=== PATIENT | female | born 1955 | race Caucasian/White ===

== ENCOUNTER 2019-12-24 06:37 | Day surgery (SDC) | payer BC ==
[2019-12-24] MEDS ORDERED: Lidocaine 1% PF 2 ML SDV INJECT ONE (06:38)
[2019-12-24] MEDS ORDERED: Propofol 200 MG/20 ML SDV IV ONE (06:38)
[2019-12-24] MEDS ORDERED: Sodium Chloride 0.9% 10 ML Syringe FLUSH PRN (06:45)
[2019-12-24] MEDS ORDERED: Lactated Ringers 1,000 ML IV SCH (06:45)
--- NOTE | 2019-12-24 09:06 | PCM.OPNOTE ---
- General Post-Op/Procedure Note Date of Surgery/Procedure: 12/24/19 Operative Procedure(s): c scope with biopsy cold forcep Findings: sigmoid colon polyp Pre Op Diagnosis: + colo-guard Post-Op Diagnosis: sigmoid colon polyp Anesthesia Technique: MAC Primary Surgeon: Julián Rehman Anesthesia Provider: Paulo Fitch Pathology: sigmoid colon polyp Complications: None Condition: Good Free Text/Narrative:: see dictation
--- NOTE | 2019-12-24 09:20 | OR ---
DATE OF OPERATION: 12/24/2019 SURGEON: Julián Rehman MD PROCEDURE PERFORMED: Colonoscopy with cold forceps biopsy. PREOPERATIVE DIAGNOSIS: Positive Cologuard test. POSTOPERATIVE DIAGNOSIS: Sigmoid colon polyp. INDICATIONS FOR PROCEDURE: A 64-year-old white female, recently underwent a Cologuard test. This came back positive. She was offered and accepted a colonoscopy. DESCRIPTION OF OPERATION: After an excellent IV sedation was administered, digital rectal exam was performed. No marked abnormality was noted. Flexible colonoscope was inserted and advanced to the cecum. Prep was excellent. The following findings were noted. Ascending colon, unremarkable. Transverse colon, unremarkable. Descending colon, unremarkable. Sigmoid, small polypoid lesion, approximately 5 x 3 mm in size, biopsied and submitted in 1 container. Cold biopsy forceps. This was not amenable to a loop biopsy. Rectum and anus, unremarkable. The patient tolerated the procedure well, was taken to recovery room. Results will be sent to the patient via letter. /[id number] ASHLEY/STEVE
== END 2019-12-24 09:50 | disposition home or self-care (01) ==
LOC: FB.SDS 06:37
PROVIDERS: ATTEND Surgery
DX: D12.5 Benign neoplasm of sigmoid colon (principal); Z79.899 Other long term (current) drug therapy; Z90.49 Acquired absence of other specified parts of digestive tract
CPT/HCPCS: 00811-QZ; 88305; J2001; J2704; J7120

== ENCOUNTER 2025-08-14 07:53 | Day surgery (SDC) | payer MEDICARE, BC ==
[2025-08-14] MEDS ORDERED: Propofol 200 MG/20 ML SDV IV ONE (07:54)
[2025-08-14] MEDS ORDERED: Sodium Chloride 0.9% 10 ML Syringe FLUSH PRN (08:00)
[2025-08-14] MEDS: Lactated Ringers 1,000 ML IV SCH (08:35)
[2025-08-15 21:10] LABS: LACTOFERRIN,FECAL BY ELISA Negative (Negative)
[2025-08-16 04:06] LABS: ADENOVIRUS 40/41 PCR Not Detected; ASTROVIRUS PCR Not Detected; CRYPTOSPORIDIUM PCR Not Detected; CYCLOSPORA CAYETANENSIS PCR Not Detected; ENTAMOEBA HISTOLYTICA PCR Not Detected; ENTEROAGGREGATIVE E. COLI PCR Not Detected; ENTEROPATHOGENIC E. COLI PCR Not Detected; ENTEROTOXIGENIC E. COLI PCR Not Detected; GIARDIA LAMBLIA PCR Not Detected; NOROVIRUS GI/GII PCR Not Detected; PLESIOMONAS SHIGELLOIDES PCR Not Detected; ROTAVIRUS A PCR Not Detected; SALMONELLA PCR Not Detected; SAPOVIRUS PCR Not Detected; SHIG/ENTEROINVASIVE E COLI PCR Not Detected; SHIGA TOXIN-PRODUC E. COLI PCR Not Detected; VIBRIO CHOLERAE PCR Not Detected; VIBRIO PCR Not Detected; YERSINIA ENTEROCOLITICA PCR Not Detected
== END 2025-08-14 10:55 | disposition home or self-care (01) ==
LOC: FB.SDS 07:53
PROVIDERS: ATTEND Surgery
DX: K52.9 Noninfective gastroenteritis and colitis, unspecified (principal); K62.89 Other specified diseases of anus and rectum; K57.30 Diverticulosis of large intestine without perforation or abscess without bleeding; Z88.8 Allergy status to other drugs, medicaments and biological substances; Z79.899 Other long term (current) drug therapy
CPT/HCPCS: 00811; 83630; 87507; 88305; A9270-GY; J2003; J2704; J7120